=== PATIENT | female | born 1945 ===

== ENCOUNTER 2017-09-25 19:58 | Inpatient (IN) | payer MEDICARE, MEDICAID ==
--- NOTE | 2017-09-25 20:49 | ED PDOC ---
Arrival/HPI - General Chief Complaint: Chest Pain Time Seen by Provider: 09/25/17 20:06 Historian: Patient, Family - Critical Care Narrative Critical Care (Text): you were treated in the ED today for history of heart disease with stent and you take aspirin but haven't taken recently, with chest pain generalized without otherwise without any nausea/vomiting/headache/dizziness/difficulty breathing/abdomen pain/numbness/tingling/loss of limb function/pain with urination/recent travel/prior blood clots/prior cancer/prior hormonal treatments. 09/25/17 20:54 - History of Present Illness Narrative History of Present Illness (Text): you were treated in the ED today for history of heart disease with stent and you take aspirin but haven't taken recently, with chest pain generalized without otherwise without any nausea/vomiting/headache/dizziness/difficulty breathing/abdomen pain/numbness/tingling/loss of limb function/pain with urination/recent travel/prior blood clots/prior cancer/prior hormonal treatments. 09/25/17 20:45 Time/Duration: Other (3 days) Quality: Aching Severity Level: 2 Past Medical History - Provider Review Nursing Documentation Reviewed: Yes - Travel History Have you recently traveled outside [place] w/in the past 3 mons?: No - Cardiac Hx Cardiac Disorders: Yes Hx Hypertension: Yes - Pulmonary Hx Respiratory Disorders: No - Neurological Hx Neurological Disorder: Yes Other/Comment: Insomnia - HEENT Hx HEENT Disorder: No - Renal Hx Renal Disorder: No - Endocrine/Metabolic Hx Endocrine Disorders: Yes Hx Hypothyroidism: Yes - Hematological/Oncological Hx Blood Disorders: No - Integumentary Hx Dermatological Disorder: No - Musculoskeletal/Rheumatological Hx Musculoskeletal Disorders: Yes Hx Arthritis: Yes Hx Osteoporosis: Yes - Gastrointestinal Hx Gastrointestinal Disorders: No - Genitourinary/Gynecological Hx Genitourinary Disorders: No - Psychiatric Hx Psychophysiologic Disorder: Yes Hx Substance Use: No Other/Comment: "mood swings" - Surgical History Hx Coronary Stent: Yes Family/Social History - Physician Review Nursing Documentation Reviewed: Yes Family/Social History: No Known Family HX Smoking Status: Never Smoked Hx Alcohol Use: No Hx Substance Use: No Allergies/Home Meds Allergies/Adverse Reactions: Allergies No Known Allergies Allergy (Verified 09/25/17 20:07) Home Medications: Home Meds Medication Instructions Recorded Confirmed Unobtainable 09/25/17 09/25/17 Review of Systems - Review of Systems Constitutional: Normal Eyes: Normal ENT: Normal Respiratory: Normal Cardiovascular: Chest Pain Gastrointestinal: Normal Genitourinary Female: Normal Musculoskeletal: Normal Skin: Normal Neurological: Normal Endocrine: Normal Hemo/Lymphatic: Normal Psychiatric: Normal Physical Exam Vital Signs Reviewed: Yes Vital Signs Temp Pulse Resp BP Pulse Ox 09/25/17 19:58 98.1 F 62 18 133/63 100 Temperature: Afebrile Blood Pressure: Hypertensive Pulse: Regular Respiratory Rate: Normal Appearance: Positive for: Well-Appearing, Non-Toxic, Comfortable Pain Distress: None Mental Status: Positive for: Alert and Oriented X 3 - Systems Exam Head: Present: Atraumatic, Normocephalic Pupils: Present: PERRL Extroacular Muscles: Present: EOMI Conjunctiva: Present: Normal Ears: Present: Normal Pharnyx: Present: Normal Nose (External): Present: Atraumatic Nose (Internal): Present: Normal Inspection Neck: Present: Normal Range of Motion Respiratory/Chest: Present: Clear to Auscultation, Good Air Exchange Cardiovascular: Present: Regular Rate and Rhythm Abdomen: No: Tenderness, Distention, Normal Bowel Sounds, Peritoneal Signs, Rebound, Guarding, McBurney's Point Tender, Rovsing's Sign Present, Hernias, Feeding Tubes, Ostomy Tubes, Mass/Organomegaly, Scars, Other Medical Decision Making ED Course and Treatment: you were treated in the ED today for history of heart disease with stent and you take aspirin but haven't taken recently, with chest pain generalized without otherwise without any nausea/vomiting/headache/dizziness/difficulty breathing/abdomen pain/numbness/tingling/loss of limb function/pain with urination/recent travel/prior blood clots/prior cancer/prior hormonal treatments. You were otherwise breathing easily, smiling with your daughter, good strength/sensation, alert/oriented, walking easily, clear lungs, no abdomen tenderness, no fever temp 98.1, stable heart rate 62, stable breathing rate _18, excellent oxygen level 100% room air, elevated blood pressure 133/63 which we recommend repeat in 2-3 days primary care office to determine further treatment. neg wbc/trop/bnp. CXR no acute. 09/25/17 20:49 09/25/17 22:01 d/w Dr. Garcia who agreed aspirin, and can admit obs for remote telemetry. - Lab Interpretations Lab Results: 09/25/17 20:11 09/25/17 20:11 Lab Results 09/25/17 20:11: PT 11.3, INR 0.99, APTT 32.5 09/25/17 20:11: Sodium 136, Potassium 4.1, Chloride 99, Carbon Dioxide 30, Anion Gap 11, BUN 18, Creatinine 0.9, Est GFR ( Amer) > 60, Est GFR (Non- Af Amer) > 60, Random Glucose 86, Calcium 10.1, Magnesium 1.9, Total Bilirubin 0.3, AST 32, ALT 27, Alkaline Phosphatase 88, Lactate Dehydrogenase 476, Total Creatine Kinase 62, Troponin I < 0.01, NT-Pro-B Natriuret Pep 114, Total Protein 7.9, Albumin 4.3, Globulin 3.6, Albumin/Globulin Ratio 1.2 09/25/17 20:11: WBC 5.2, RBC 3.91, Hgb 11.6 L, Hct 35.2 L, MCV 90.0, MCH 29.7, MCHC 33.0, RDW 13.8, Plt Count 253, MPV 9.7, Gran % 32.5 L, Lymph % (Auto) 60.3 H, Gilmer % (Auto) 5.9, Eos % (Auto) 1.1 L, Baso % (Auto) 0.2, Gran # 1.69, Lymph # 3.2, Gilmer # 0.3, Eos # 0.1, Baso # 0.01 - RAD Interpretation Radiology Orders: 09/25/17 20:27 CHEST TWO VIEWS (PA/LAT) [RAD] Stat - EKG Interpretation Interpreted by ED Physician: Yes (NSR, flipped t waves avr, avf, v1, iii, flattened ii, ) Type: 12 lead EKG - Medication Orders Current Medication Orders: Acetaminophen (Tylenol 325mg Tab) 650 mg PO Q6H PRN PRN Reason: Fever >100.4 F Nitroglycerin (Nitro-Bid 2% Oint) 1 ea TOP Q4H KOBE Discontinued Medications Aspirin (Aspirin Chewable) 324 mg PO STAT STA Stop: 09/25/17 20:31 Last Admin: 09/25/17 20:38 Dose: 324 mg Disposition/Present on Arrival - Present on Arrival Any Indicators Present on Arrival: No History of DVT/PE: No History of Uncontrolled Diabetes: No Urinary Catheter: No History of Decub. Ulcer: No History Surgical Site Infection Following: None - Disposition Have Diagnosis and Disposition been Completed?: Yes Diagnosis: Chest pain Disposition: HOSPITALIZED Disposition Time: 22:03 Patient Plan: Admission, Telemetry Condition: STABLE Discharge Instructions (ExitCare): Chest Pain (ED) Referrals: PCP,NO [Primary Care Provider] - Follow up with primary Forms: [employer] (Mongolian)
[2017-09-25 20:56] LABS: BASO # 0.01 [, K/mm3] (0.0-2.0); BASO % 0.2 % (0.0-3.0); EOS # 0.1 (0.0-0.7); EOS % 1.1 % (1.5-5.0); GRAN # 1.69 (1.4-6.5); GRAN % 32.5 % (50.0-68.0); HEMOGLOBIN 11.6 g/dL (12.0-16.0); LYMPH # 3.2 (1.2-3.4); LYMPH % 60.3 % (22.0-35.0); MEAN CORPUSCULAR HEMOGLOBIN 29.7 pg (25.0-35.0); MEAN PLATELET VOLUME 9.7 fl (7.0-11.0); MONO # 0.3 (0.1-0.6); MONO % 5.9 % (1.0-6.0); RBC 3.91 [, 10^6/uL] (3.5-6.1); RED CELL DISTRIBUTION WIDTH 13.8 % (11.5-14.5); WHITE BLOOD COUNT 5.2 [, 10^3/ul] (4.5-11.0)
[2017-09-25 21:03] LABS: INR 0.99 (0.93-1.08); PROTHROMBIN TIME 11.3 SECONDS (9.4-12.5)
[2017-09-25 21:04] LABS: ALB/GLOB RATIO 1.2 (1.1-1.8); ALBUMIN 4.3 g/dL (3.0-4.8); ALT/SGPT 27 U/L (7-56); AST/SGOT 32 U/L (14-36); BLOOD UREA NITROGEN 18 mg/dL (7-21); CALCIUM 10.1 mg/dL (8.4-10.5); GFR AFRICAN-AMERICAN > 60; GFR NON-AFRICAN AMERICAN > 60; MAGNESIUM 1.9 mg/dL (1.7-2.2); PARTIAL THROMBOPLASTIN TIME 32.5 Seconds (25.1-36.5)
[2017-09-25 21:16] LABS: B-TYPE NATRIURETIC PEPTIDE 114 pg/mL (0-450); TROPONIN I < 0.01 ng/mL
[2017-09-25] MEDS: Nitroglycerin 2% Ointment Foilpak UD TOP SCH (22:18)
[2017-09-26] MEDS: Nitroglycerin 2% Ointment Foilpak UD TOP SCH ×6 (02:45→21:46)
[2017-09-26 07:25] LABS: TROPONIN I < 0.01 ng/mL
[2017-09-26 07:27] LABS: HDL CHOLESTEROL 57 mg/dL (29-60)
[2017-09-26 07:38] LABS: LDL CHOLESTEROL 95 mg/dL (0-129)
--- NOTE | 2017-09-26 08:51 | RAD ---
HISTORY: 72yoF, chest pain COMPARISON: No prior. TECHNIQUE: Chest PA and lateral FINDINGS: LUNGS: Minor crowding is seen at the lung bases. No focal alveolar infiltrate is seen. PLEURA: No significant pleural effusion identified. No pneumothorax apparent. CARDIOVASCULAR: Normal. OSSEOUS STRUCTURES: Degenerative changes are seen in the spine. No rib fracture is seen. VISUALIZED UPPER ABDOMEN: Normal. OTHER FINDINGS: None. IMPRESSION: No focal infiltrate or CHF.
--- NOTE | 2017-09-26 11:03 | CARD ---
APPROVED REPORT EKG Measurement Heart [id number] PA 160P4 [id number] <Conclusion> Normal sinus rhythm Moderate voltage criteria for LVH, may be normal variant LAD PRWP NSSTW changes V4 obscured by artifact
[2017-09-26 11:05] LABS: IRON 59 ug/dL (45-180)
[2017-09-26 11:14] LABS: % IRON SATURATION 23 % (20-55); TOTAL IRON BINDING CAPACITY 263 ug/dL (265-497)
[2017-09-26 12:52] LABS: TROPONIN I < 0.01 ng/mL
[2017-09-26 17:04] LABS: FERRITIN 26.1 ng/mL
[2017-09-26 17:34] LABS: FOLATE > 20.0 ng/mL
[2017-09-27] MEDS: Nitroglycerin 2% Ointment Foilpak UD TOP SCH ×6 (02:44→21:12)
[2017-09-27 03:06] LABS: URINE BILIRUBIN NEGATIVE (NEGATIVE); URINE BLOOD NEGATIVE (NEGATIVE); URINE GLUCOSE (UA) NEGATIVE (NEGATIVE); URINE LEUKOCYTE ESTERASE NEGATIVE Leu/uL (NEGATIVE); URINE NITRATE NEGATIVE (NEGATIVE); URINE PROTEIN NEGATIVE mg/dL (<30 mg/dL); URINE UROBILINOGEN 0.2 E.U./dL (<1 E.U./dL)
[2017-09-27 03:20] LABS: URINE APPEARANCE CLEAR (CLEAR); URINE COLOR YELLOW (YELLOW)
--- NOTE | 2017-09-27 06:22 | HP ---
HISTORY OF PRESENT ILLNESS: This 72-year-old female was examined at her bedside in the presence of her nurse Humaira Brumfield, Registered Nurse and this case was reviewed in detail with the patient's daughter Leyda Sanford with whom the patient lives. The patient presented to the [facility] ER last evening. She complained of substernal chest pain with difficulty breathing for the past 2 days prior to admission. Her past medical history is significant for atherosclerotic heart disease and coronary artery stent placed in the year 2003. The patient was previously living in [place] and has recently relocated to live with her daughter, Leyda in [place], [place]. PAST MEDICAL HISTORY: According to the patient, she has a past medical history of chronic hypertension, hyperlipidemia, and atherosclerotic heart disease. She has not had any recent blood work, Cardiology followup or a lab testings and has not been on any medication in the recent past. SOCIAL HISTORY: At present, the patient is a nondrinker, nonsmoker, and non-IV drug misuser. FAMILY HISTORY: Noncontributory. On the satellite project site monitor, she was in a normal sinus rhythm, and at present was not complaining of chest pain and is wearing nitroglycerin ointment to her chest wall at present. REVIEW OF SYSTEMS: CONSTITUTIONAL: There are no fever or chills. HEAD: No headache or seizure. EYES: No change in visual acuity. EARS: No hearing loss. THROAT: No swallowing difficulty. NECK: No stiffness. CARDIAC: As per HPI. PULMONARY: No hemoptysis. GASTROINTESTINAL: No hematemesis. No melena. GENITOURINARY: No dysuria. SKIN: Without rash. NEUROLOGICAL: No recent stroke. VASCULAR: No claudication. PSYCHOLOGICAL: Chronic anxiety. ENDOCRINOLOGICAL: No knowledge of diabetes or chronic hyperlipidemia. OUTPATIENT MEDICATIONS: None. PHYSICAL EXAMINATION: VITAL SIGNS: satellite project site monitor showed a normal sinus rhythm. Temperature 98, respirations 20, pulse 60, blood pressure 137/59, and pulse ox 95% on room air. HEENT: Head; normocephalic and atraumatic. Eyes; no icterus. Ears clear. Throat; noninjected. NECK: Supple. HEART: Regular, S1 and S2. No pathological rubs, murmurs, gallops. LUNGS: Clear. ABDOMEN: Soft. EXTREMITIES: No edema. SKIN: Without rash. NEUROLOGICAL: Intact. PSYCHOLOGICAL: Alert. VASCULAR: Legs warm to touch. LABORATORY DATA: White count 5,200, hemoglobin 11.6, hematocrit 35.2, platelets 253,000. PT/INR is 0.99, PTT 32.5. Sodium 136, potassium 4.1, chloride 99, bicarb 30, BUN 18, creatinine 0.9. Random blood sugar 86. Magnesium normal 1.9. Iron 59, TIBC 263, percent saturation 23, ferritin normal 26. Liver function testing normal including bilirubin 0.3, AST 32, ALT 27, and alkaline phosphatase 88. CPK #1 62, CPK #2 56, CPK #3 52. Troponin less than 0.01 x3. Cholesterol 216, triglyceride 215, LDL 95, and HDL 57. Vitamin B12 of 373 and folic acid 20. Chest x-ray was reviewed, it showed no active infiltrate, no pleural effusion, no pneumothorax. EKG showed normal sinus rhythm with nonspecific ST-T wave changes and a left axis deviation and poor R wave progression. IMPRESSION: A 72-year-old female with history of atherosclerotic heart disease, hypertension, hyperlipidemia, and history of coronary stenting in her past, now with probable unstable angina, rule out atypical chest pain secondary to peptic ulcer disease with anemia of chronic disease, and hyperlipidemia. PLAN: As discussed with the patient, nursing, and daughter will be to maintain the patient on the cardiac pablo and she has been scheduled for 2D echocardiogram and a thallium stress test for completeness sake. She was ordered to have a venous Doppler of both lower extremities and will be continued on Ecotrin 81 mg p.o. daily, Lipitor 20 mg p.o. at bedtime, nitroglycerin 1 inch to chest wall q. 4 hours and Tylenol 650 mg p.o. q. 6 hours p.r.n. pain, headache, or temperature greater than 101. She will remain on the satellite project site monitor. She continues to have heart-healthy, bland diet and will be monitored for any change in her cardiovascular status. All of the above was discussed in the detail with the patient, nursing, and her daughter. Greater than 75 minutes was spent in the care. Review of x-rays, labs,medications, and discussion of the patient with family at bedside, all questions were answered. Kathia Garcia MD [facility] # [id number] MTDD
--- NOTE | 2017-09-27 08:51 | CARD ---
APPROVED REPORT EXAM: Two-dimensional and M-mode echocardiogram with Doppler and color Doppler. Other Information Quality : PoorRhythm : INDICATION Chest pressure 2D DIMENSIONS IVSd1.3 (0.7-1.1cm)LVDd4.4 (3.9-5.9cm) PWd1.0 (0.7-1.1cm)LVDs2.8 (2.5-4.0cm) FS (%) 35.6 %LVEF (%)65.0 (>50%) M-Mode DIMENSIONS Left Atrium (MM)4.00 (2.5-4.0cm)Aortic Root2.90 (2.2-3.7cm) Aortic Cusp Exc.2.00 (1.5-2.0cm) Aortic Valve AoV Peak Uqpnyegm646.0cm/s Mitral Valve MV E Wnsgwshg98.6cm/sMV A Hhzauvay50.9cm/sE/A ratio0.8 TDI Lateral E' Peak V6.24cm/sMedial E' Peak V4.68cm/sE/Lateral E'11.0 E/Medial E'14.7 Tricuspid Valve TR Peak Xpsfaouo022pj/sRAP [id number] Peak Gr.15mmHg [id number] LEFT VENTRICLE The left ventricle is normal size. There is normal left ventricular wall thickness. The left ventricular function is normal. The left ventricular ejection fraction is within the normal range. There is normal LV segmental wall motion. RIGHT VENTRICLE The right ventricle is not well visualized. ATRIA The left atrium size is normal. The right atrium is not well visualized. AORTIC VALVE The aortic valve is mildly sclerotic. MITRAL VALVE The mitral valve is normal in structure. TRICUSPID VALVE The tricuspid valve is normal in structure. There is trace tricuspid regurgitation. PULMONIC VALVE The pulmonary valve is normal in structure. GREAT VESSELS The aortic root is normal in size. PERICARDIAL EFFUSION There is no pericardial effusion. <Conclusion> The left ventricle is normal size. There is normal left ventricular wall thickness. The left ventricular function is normal.
[2017-09-28] MEDS: Nitroglycerin 2% Ointment Foilpak UD TOP SCH ×5 (02:06→16:56)
[2017-09-28 05:56] VITALS: O2SAT 96
--- NOTE | 2017-09-28 08:08 | PN ---
DATE: 09/27/2017 SUBJECTIVE: This 72-year-old female was examined in the cardiac unit. She is in a normal sinus rhythm at present. She denies any active chest pain. There have been no reports of fever or chills. She is cooperating with the nursing staff. This case was reviewed in detail with her nurse, Angela Salazar, Registered Nurse. PHYSICAL EXAMINATION: VITAL SIGNS: She is in a normal sinus rhythm on the manager cardiac cath with temperature 98.4, respirations 20, pulse 56 and blood pressure 131/69 and pulse ox 97%. HEENT: Head is normocephalic, atraumatic. Eyes: No icterus. Ears: Clear. Throat: Noninjected. NECK: Supple. HEART: Regular, S1, S2. LUNGS: Clear. ABDOMEN: Soft. EXTREMITIES: No edema. SKIN: Without rash. NEUROLOGICAL: Intact. PSYCHOLOGICAL: Alert. VASCULAR: Legs warm to touch. LABORATORY DATA: White count 5200, hemoglobin 11.6, hematocrit 35.2, platelets 253,000. PT/INR 0.99, PTT 32.5. Sodium 136, K 4.1, chloride 99, bicarb 30, BUN 18, creatinine 0.9, random blood sugar 86. Magnesium level normal 1.9. Iron 59, TIBC 263, percent saturation 23%, ferritin 26.1. All liver function testing was normal including bilirubin 0.3, AST 32, ALT 27, alk phos 88. CPK #1 62, #2 56, #3 52, cholesterol 216, LDL 95, HDL 57, triglycerides 215, B12 373. Folic acid 20. Urinalysis unremarkable. Chest x-ray; no active infiltrate. EKG normal sinus rhythm with nonspecific ST-T wave changes. Echocardiography was completed and reviewed. It showed normal left ventricular size, wall motion and thickness. Left ventricular ejection fraction is normal. No valvular pathology was noted. IMPRESSION: This is a 72-year-old female with history of atherosclerotic heart disease and coronary artery stenting in the past with comorbidities of hypertension, hyperlipidemia and noncompliance with diet, medication and medical followup in her past. PLAN: The plan as discussed with the patient, nursing and her daughter, Leyda Sanford, will be to maintain the patient on the cardiac pablo. She is being readied for a Lexiscan stress thallium test in the a.m. She will be n.p.o. after midnight. I am awaiting the official results of her bilateral lower extremity venous Dopplers, reportedly negative. She continues on Ecotrin 81 mg p.o. daily, Lipitor 20 mg p.o. daily, nitroglycerin 1 inch to chest wall q. 4 hours and a heart-healthy diet. Pending results of venous Doppler studies and thallium stress test. The patient will be readied for discharge for medical management as an outpatient. The patient has an anemia of chronic disease and as discussed with her daughter, if she has not had a colonoscopy and endoscopy in her recent past, it is advised that she do so. Greater than 35 minutes was spent in the care, management, ordering of labs, x-rays, medication and orders for this patient today. All questions were answered. Kathia Garcia MD MTDD
--- NOTE | 2017-09-28 17:16 | US ---
HISTORY: Leg pain and swelling. Evaluate for DVT PHYSICIAN(S): Waylon Huddleston MD. TECHNIQUE: Duplex sonography and color-flow Doppler with graded compression were used to evaluate the deep venous systems of both lower extremities. FINDINGS: The visualized deep venous systems of both lower extremities are sonographically normal and compressible. Normal wave forms and augmentation are seen. There is no sonographic evidence for deep venous thrombosis in the visualized segments of both lower extremities. IMPRESSION: No sonographic evidence for deep venous thrombosis in the visualized segments of both lower extremities.
[2017-09-28 17:47] VITALS: BP 179/76; PULSE 55; RESP 21; TEMP 98
--- NOTE | 2017-09-29 02:14 | CON ---
DATE: IDENTIFICATION INFORMATION: The patient is a 72-year-old (looks significantly older) Marcel female who came to the emergency room complaining of substernal chest pain with difficulty in breathing of 2 days' duration. HISTORY OF PRESENT ILLNESS: The patient has a medical history that is positive for ACHD, coronary artery stent in 2003. She had previously been residing in [place] and relocated to live with her daughter in [place]. She also has a past medical history of hypertension, hyperlipidemia. I have reviewed the patient's chart and discussed her situation with nursing and of her poor compliance and refusal to allow for necessary medical testing. The patient presents as a poor historian. She was interviewed with the assistance of a Belarusian-speaking nurse. The patient informs me that she is 82-year-old (her chart indicates 72) and she appears disoriented to year. She is aware she is in the hospital, could not specifically say why and could not identify the year. She gives a poor general history. She initially indicated she had one daughter from her (first and perhaps only marriage), but has what appeared to be 10 children from 3 different mates. She denies a psychiatric history. Other than her disorientation, and poor room conveyance of history, the patient does not show any overt signs of psychosis, depression, anxiety, suicidality, or homicidality. A chest x-ray showed degenerative changes in the spine with no focal infiltrate or congestive heart failure. An EKG performed on 09/25/2017 showed a normal sinus rhythm with moderate voltage criteria for LVH which may be a normal variant, LAD, PRWP, and SSTW changes. An echocardiogram showed normal left ventricular size, thickness and function. An extremity ultrasound shows no sonographic evidence of DVT of both lower extremities. The patient is presently being maintained on Ecotrin 81, Lipitor 20 mg. CBC and differential showed low hemoglobin of 11.6, hematocrit 35.2. A biochemical profile showed lowered TIBC of 263 with elevated triglycerides of 215 and cholesterol 216 with other indices being within normal limits. Urinalysis has been clear. PT 11.3, INR is 0.99. I have prevailed upon the patient to try to be cooperative. She appears to have a limited insight and poor judgment that she would cooperate with necessary medical testing. As I look at progress notes through the course of the day after having reached an agreement with the patient that she would be calm, cooperative with testing. I observed that the patient has prevailed upon her daughter to take her home against medical advice. This is unfortunate but unavoidable at this juncture. DIAGNOSES: 1. Rule out cognitive disorder, not otherwise specified. 2. Rule out adjustment disorder with disturbance in conduct. Jourdan Cristina MD/ PhD
--- NOTE | 2017-09-29 19:16 | DS ---
FINAL DIAGNOSES: Chest pain, etiology unclear; history of noncompliance with diet, medication, and medical followup in her past; anemia of chronic disease; hypertension; hyperlipidemia; anxiety neurosis. The patient with her daughter left against medical advice, 09/28/2017. SUMMARY: This 72-year-old female was admitted through the [facility] Emergency Room with a chief complaint of chest discomfort and a past medical history of atherosclerotic heart disease, coronary artery stenting, hypertension and hyperlipidemia for which she has been under no medical followup or medication in the recent past. The patient was admitted, underwent chest x-ray that was unremarkable. Her EKG showed a sinus rhythm with nonspecific ST-T wave changes and her echocardiogram showed normal left ventricular wall motion, function, and thickness. Because of her history of atherosclerotic heart disease, stenting, presentation to the emergency room and comorbidities, she was scheduled for a thallium stress test on the morning of 09/28/2017. The patient was brought down to testing where she became upset and refused to undergo stress test stating she wanted to go home. Her daughter was informed. Given the patient's clinical presentation and comorbidities, a psychiatric evaluation was requested with Dr. Cristina to ensure that the patient was competent in her decision for refusal. This was accomplished and the patient was evaluated by Dr. Cristina from Psychiatry who reportedly stated the patient was able to make independent decisions. After his evaluation the patient initially agreed to cooperate with necessary testing, then stated she would not. Nursing staff called her daughter. The patient's daughter stated to her nurse that she would be in later in the evening to take her mother home against medical advice. When the daughter arrived I spoke with her again. They are aware of my concerns regarding her presentation, past medical history, and current status, and still desired to leave against medical advice. The daughter was informed that the patient should seek follow up with her PMD within the next 24 to 48 hours, and for any further chest pain, present directly to the closest emergency room. Kathia Garcia MD [facility]
== END 2017-09-28 18:44 | disposition left against medical advice (07) | DRG 303 ==
LOC: ED 19:58 → ERH 22:03 → 2RSO 09-26 00:51 → OBSVTOIN 09-26 10:42
PROVIDERS: ADMIT Internal Medicine; ATTEND Internal Medicine
DX: I25.110 Atherosclerotic heart disease of native coronary artery with unstable angina pectoris (principal); I10 Essential (primary) hypertension; D63.8 Anemia in other chronic diseases classified elsewhere; E78.5 Hyperlipidemia, unspecified; K27.9 Peptic ulcer, site unspecified, unspecified as acute or chronic, without hemorrhage or perforation; Z95.5 Presence of coronary angioplasty implant and graft; Z91.14 Patient's other noncompliance with medication regimen; Z91.11 Patient's noncompliance with dietary regimen

== ENCOUNTER 2018-04-01 20:47 | Observation (INO) | payer MEDICARE, MEDICAID ==
[2018-04-01 20:55] VITALS: BMI 27.4
[2018-04-01 21:11] LABS: BASO # 0.01 K/mm3 (0.0-2.0); BASO % 0.2 % (0.0-3.0); EOS % 0.5 % (1.5-5.0); GRAN # 2.31 (1.4-6.5); HEMOGLOBIN 11.3 g/dL (12.0-16.0); LYMPH # 3.3 (1.2-3.4); LYMPH % 55.6 % (22.0-35.0); MEAN CORPUSCULAR HEMOGLOBIN 29.3 pg (25.0-35.0); MEAN PLATELET VOLUME 9.2 fl (7.0-11.0); MONO # 0.3 (0.1-0.6); MONO % 4.7 % (1.0-6.0); RBC 3.86 10^6/uL (3.5-6.1); RED CELL DISTRIBUTION WIDTH 14.1 % (11.5-14.5); WHITE BLOOD COUNT 5.9 10^3/ul (4.5-11.0)
[2018-04-01 21:20] LABS: ALB/GLOB RATIO 1.2 (1.1-1.8); ALBUMIN 4.2 g/dL (3.0-4.8); ALT/SGPT 24 U/L (7-56); AST/SGOT 27 U/L (14-36); BLOOD UREA NITROGEN 11 mg/dL (7-21); CALCIUM 9.9 mg/dL (8.4-10.5); GFR AFRICAN-AMERICAN > 60; GFR NON-AFRICAN AMERICAN > 60
--- NOTE | 2018-04-01 21:25 | ED PDOC ---
Arrival/HPI - General Chief Complaint: Chest Pain Time Seen by Provider: 04/01/18 20:49 Historian: Patient - History of Present Illness Narrative History of Present Illness (Text): 04/01/18 20:50 73 year old female, whose past medical history includes hypertension and cardiac stent placement 5 years ago presents to the emergency department complaining of left sided dull-like chest pain since mid-afternoon. Patient was given Aspirin by EMS. Patient has not had a recent cardiac workup. Patient does not take Aspirin or anticoagulants as per family. Patient denies any fever, chills, shortness of breath, nausea, vomiting, diarrhea, urinary symptoms, back pain, neck pain, headache, dizziness, or any other complaints. Symptom Onset: Gradual Symptom Course: Unchanged Activities at Onset: Light Context: Home Past Medical History - Provider Review Nursing Documentation Reviewed: Yes - Cardiac Hx Cardiac Disorders: Yes Hx Hypertension: Yes Hx Hypotension: Yes - Pulmonary Hx Respiratory Disorders: No Hx Pneumonia: No - Neurological Hx Neurological Disorder: Yes Other/Comment: Insomnia - HEENT Hx HEENT Disorder: Yes Other/Comment: wears glasses, Upper dentures - Renal Hx Renal Disorder: No - Endocrine/Metabolic Hx Endocrine Disorders: Yes Hx Hypothyroidism: Yes - Hematological/Oncological Hx Blood Disorders: No - Integumentary Hx Dermatological Disorder: No - Musculoskeletal/Rheumatological Hx Musculoskeletal Disorders: Yes Hx Arthritis: Yes Hx Falls: No Hx Osteoporosis: Yes - Gastrointestinal Hx Gastrointestinal Disorders: No - Genitourinary/Gynecological Hx Genitourinary Disorders: No - Psychiatric Hx Psychophysiologic Disorder: Yes Hx Depression: Yes Hx Substance Use: No Other/Comment: "mood swings" - Surgical History Hx Coronary Stent: Yes Family/Social History - Physician Review Nursing Documentation Reviewed: Yes Family/Social History: No Known Family HX Smoking Status: Never Smoked Hx Alcohol Use: No Hx Substance Use: No Allergies/Home Meds Allergies/Adverse Reactions: Allergies No Known Allergies Allergy (Verified 04/01/18 21:00) Home Medications: Home Meds Medication Instructions Recorded Confirmed Donepezil [Aricept] 10 mg PO DAILY 04/01/18 04/01/18 Lisinopril [Zestril] 10 mg PO DAILY 04/01/18 04/01/18 Temazepam [Restoril] 7.5 mg PO HS PRN 04/01/18 04/01/18 Review of Systems - Physician Review All systems were reviewed & negative as marked: Yes - Review of Systems Constitutional: absent: Fevers Respiratory: absent: SOB Cardiovascular: Chest Pain Gastrointestinal: absent: Diarrhea, Nausea, Vomiting Genitourinary Female: absent: Dysuria, Frequency, Hematuria Musculoskeletal: absent: Back Pain, Neck Pain Neurological: absent: Headache, Dizziness Physical Exam Vital Signs Reviewed: Yes Vital Signs Temp Pulse Pulse Resp BP Pulse Ox 04/01/18 23:04 98.3 F 63 60 20 145/70 04/01/18 21:00 98.4 F 63 18 151/78 H 100 Temperature: Afebrile Blood Pressure: Hypertensive Pulse: Regular Respiratory Rate: Normal Appearance: Positive for: Well-Appearing, Non-Toxic, Comfortable Pain Distress: None Mental Status: Positive for: Alert and Oriented X 3 - Systems Exam Head: Present: Atraumatic, Normocephalic Pupils: Present: PERRL Extroacular Muscles: Present: EOMI Conjunctiva: Present: Normal Mouth: Present: Moist Mucous Membranes Neck: Present: Normal Range of Motion Respiratory/Chest: Present: Clear to Auscultation, Good Air Exchange. No: Respiratory Distress, Accessory Muscle Use Cardiovascular: Present: Regular Rate and Rhythm, Normal S1, S2. No: Murmurs Abdomen: No: Tenderness, Distention, Peritoneal Signs Back: Present: Normal Inspection Upper Extremity: Present: Normal Inspection. No: Cyanosis, Edema Lower Extremity: Present: Normal Inspection. No: Edema Neurological: Present: GCS=15, CN II-XII Intact, Speech Normal Skin: Present: Warm, Dry, Normal Color. No: Rashes Psychiatric: Present: Alert, Oriented x 3, Normal Insight, Normal Concentration Medical Decision Making ED Course and Treatment: 04/01/18 21:23 Impression: 73 year old female presents complaining of left-sided dull-like chest pain. Plan: -- EKG -- Labs -- Chest X-ray -- Reassess and disposition Prior Visits: Notes and results from previous visits were reviewed. Patient was last seen in the emergency department on 09/25/17 presents complaining of chest pain. Patient was admitted. Progress Notes: EKG shows Sinus Rhythm at 71 BPM with Normal axis. Normal Intervals. Interpreted by me. 04/01/18 21:33 CXR Impression: As read by me, no acute disease. 04/01/18 21:55 Case discussed with medical massage therapist and Dr. Talbert who is aware and agrees with the plan. Accepts patient into hospitalist service. - Lab Interpretations Lab Results: 04/01/18 20:53 04/01/18 20:53 Lab Results 04/01/18 20:53: Sodium 141, Potassium 3.5 L, Chloride 106, Carbon Dioxide 23, Anion Gap 16, BUN 11, Creatinine 0.6 L, Est GFR ( Amer) > 60, Est GFR ( Non-Af Amer) > 60, Random Glucose 112 H, Calcium 9.9, Magnesium 1.9, Total Bilirubin 0.3, AST 27, ALT 24, Alkaline Phosphatase 87, Lactate Dehydrogenase 423, Total Creatine Kinase 82, Troponin I < 0.01, NT-Pro-B Natriuret Pep 199, Total Protein 7.8, Albumin 4.2, Globulin 3.6, Albumin/Globulin Ratio 1.2, Triglycerides 109, Cholesterol 206 H, LDL Cholesterol Direct 101, HDL Cholesterol 59 04/01/18 20:53: WBC 5.9, RBC 3.86, Hgb 11.3 L, Hct 33.2 L, MCV 86.0 D, MCH 29.3 , MCHC 34.0, RDW 14.1, Plt Count 279, MPV 9.2, Gran % 39.0 L, Lymph % (Auto) 55.6 H, [place] % (Auto) 4.7, Eos % (Auto) 0.5 L, Baso % (Auto) 0.2, Gran # 2.31, Lymph # (Auto) 3.3, [place] # (Auto) 0.3, Eos # (Auto) 0.0, Baso # (Auto) 0.01 I have reviewed the lab results: Yes - RAD Interpretation Radiology Orders: 04/01/18 20:56 CHEST PORTABLE [RAD] Stat - EKG Interpretation Interpreted by ED Physician: Yes Type: 12 lead EKG - Medication Orders Current Medication Orders: Donepezil HCl (Aricept) 10 mg PO DAILY [facility] Lisinopril (Zestril) 10 mg PO DAILY [facility] Metoprolol Succinate (Toprol Xl) 12.5 mg PO BRK [facility] Pantoprazole Sodium (Protonix Inj) 40 mg IVP DAILY [facility] Discontinued Medications Aspirin (Aspirin) 325 mg PO STAT STA Stop: 04/01/18 23:28 Last Admin: 04/02/18 00:16 Dose: 325 mg Atorvastatin Calcium (Lipitor) 40 mg PO STAT STA Stop: 04/01/18 23:28 Last Admin: 04/02/18 00:16 Dose: 40 mg Clopidogrel Bisulfate (Plavix) 75 mg PO STAT STA Stop: 04/01/18 23:28 Last Admin: 04/02/18 00:16 Dose: 75 mg Enoxaparin Sodium (Lovenox) 40 mg SC STAT STA PRN Reason: Protocol Stop: 04/01/18 23:28 Last Admin: 04/02/18 00:16 Dose: 40 mg Subcutaneous Administrations Document 04/02/18 00:16 GC (Rec: 04/02/18 00:16 GC [id number]) Injection Site MAR Injection Site Right Arm Charges for Administration # of Subcutaneous Administrations 1 - Scribe Statement The provider has reviewed the documentation as recorded by the Marioibe Victoria Pace Provider Scribe Attestation: All medical record entries made by the Marioibcate were at my direction and personally dictated by me. I have reviewed the chart and agree that the record accurately reflects my personal performance of the history, physical exam, medical decision making, and the department course for this patient. I have also personally directed, reviewed, and agree with the discharge instructions and disposition. Disposition/Present on Arrival - Present on Arrival Any Indicators Present on Arrival: No History of DVT/PE: No History of Uncontrolled Diabetes: No Urinary Catheter: No History of Decub. Ulcer: No History Surgical Site Infection Following: None - Disposition Have Diagnosis and Disposition been Completed?: Yes Diagnosis: Chest pain Disposition: HOSPITALIZED Disposition Time: 21:40 Condition: STABLE
[2018-04-01 21:31] LABS: B-TYPE NATRIURETIC PEPTIDE 199 pg/mL (0-450); TROPONIN I < 0.01 ng/mL
--- NOTE | 2018-04-01 23:03 | CP.PCM.HP ---
<Param Watkins - Last Filed: 04/02/18 01:22> History of Present Illness - History of Present Illness History of Present Illness: Param Watkins PGY-1, Internal Medicine Resident, History and Physical for Dr Talbert. HPI: Pt is a 73 yo female with a PMH of HTN and Dementia presents to the ED complaining of 10/10 substernal chest pain radiating to her shoulder. She states the pain comes in 10 min episodes. She is Korean speaking only with a history of dementia, her daughter helps relate her medical history and also act as res counselor. The pain has been relieved to 7/10 since she has gotten to the hospital. She states the pain began at about 7pm today while at rest. She denies headache, vomiting, or visual changes. She reports taking 4 baby ASA when the ambulance arrived. Pt reports feeling her heart beating fast. The pain is not made worse with breathing. She states that nothing makes the pain better or worse. She reports eating some spicy food for lunch, but does not normally experience heartburn. A 12 point ROS is obtained and added to the HPI where necessary. PMH: dementia, HTN PSH: , cardiac stent placesdfa 3 years ago FH: unable to obtain due to pt dementia SH: denies tobacco, alcohol, drugs, lives with daughter Home meds: donepizil, lisinopril, temazepam Allergies: NKDA Present on Admission - Present on Admission Any Indicators Present on Admission: No Review of Systems - Review of Systems Review of Systems: 12 point ROS obtained from pt and daughter with pertinent pos/neg added to HPI Past Patient History - Past Social History Smoking Status: Never Smoked - CARDIAC Hx Cardiac Disorders: Yes Hx Hypertension: Yes Hx Hypotension: Yes - PULMONARY Hx Respiratory Disorders: No Hx Pneumonia: No - NEUROLOGICAL Hx Neurological Disorder: Yes Other/Comment: Insomnia - HEENT Hx HEENT Problems: Yes Other/Comment: wears glasses, Upper dentures - RENAL Hx Chronic Kidney Disease: No - ENDOCRINE/METABOLIC Hx Endocrine Disorders: Yes Hx Hypothyroidism: Yes - HEMATOLOGICAL/ONCOLOGICAL Hx Blood Disorders: No - INTEGUMENTARY Hx Dermatological Problems: No - MUSCULOSKELETAL/RHEUMATOLOGICAL Hx Musculoskeletal Disorders: Yes Hx Arthritis: Yes Hx Falls: No Hx Osteoporosis: Yes - GASTROINTESTINAL Hx Gastrointestinal Disorders: No - GENITOURINARY/GYNECOLOGICAL Hx Genitourinary Disorders: No - PSYCHIATRIC Hx Psychophysiologic Disorder: Yes Hx Depression: Yes Hx Substance Use: No Other/Comment: "mood swings" - SURGICAL HISTORY Hx Coronary Stent: Yes Meds Allergies/Adverse Reactions: Allergies Allergy/AdvReac Type Severity Reaction Status Date / Time No Known Allergies Allergy Verified 04/01/18 21:00 Physical Exam - Constitutional Appears: No Acute Distress - Head Exam Head Exam: ATRAUMATIC, NORMAL INSPECTION, NORMOCEPHALIC - Eye Exam Eye Exam: EOMI, Normal appearance - ENT Exam ENT Exam: Mucous Membranes Moist - Neck Exam Neck exam: Positive for: Normal Inspection - Respiratory Exam Respiratory Exam: Clear to Auscultation Bilateral, NORMAL BREATHING PATTERN. absent: Rhonchi, Wheezes, Respiratory Distress, Stridor - Cardiovascular Exam Cardiovascular Exam: REGULAR RHYTHM, RRR, +S1, +S2. absent: Diastolic murmur, JVD, +S4, Systolic Murmur - GI/Abdominal Exam GI & Abdominal Exam: Normal Bowel Sounds, Soft - Extremities Exam Extremities exam: Positive for: full ROM, normal inspection. Negative for: calf tenderness, joint swelling, pedal edema - Neurological Exam Neurological exam: CN II-XII Intact Additional comments: pt underlying dementia makes hx difficult to obtain - Psychiatric Exam Psychiatric exam: Normal Mood - Skin Skin Exam: Dry, Intact, Warm Results - Vital Signs Recent Vital Signs: Last Vital Signs Temp 98.4 F 04/01/18 21:00 Pulse 63 04/01/18 21:00 Resp 18 04/01/18 21:00 BP 151/78 H 04/01/18 21:00 Pulse Ox 100 04/01/18 21:00 - Labs Result Diagrams: 04/01/18 20:53 04/01/18 20:53 Assessment & Plan - Assessment and Plan (Free Text) Plan: Pt is a 73 yo female with a PMH of HTN and Dementia presents to the ED complaining of 10/10 substernal chest pain radiating to her shoulder. Plan: Chest Pain -ordered Lipid panel, HA1C, Mg, Phos, TSH -Troponin NEGATIVE x1, continue to trend q6h -EKG: RRR, no ST or T wave abnormalities, no signs of ischemia, repeat EKG q6h -Cardio consult, Dr Ingram, appreciate recommendations -started ASA 325mg, Lipitor 40mg, Plavix 75mg, Metoprolol 12.5mg -ordered ECHO -pt started on heart healthy diet HTN -continue home Lisinopril 10mg Dementia -Continue home Donepezil 10mg PO Daily DVT ppx -start lovenox -start SCDs GI ppx -start Pantoprazole 40mg IVP Pt seen, examined, and assessment/plan extenisively discussed with Dr Talbert. Param Watkins PGY-1 <Yayo Talbert - Last Filed: 04/02/18 06:58> Results - Vital Signs Recent Vital Signs: Last Vital Signs Temp 98.0 F 04/02/18 06:00 Pulse 57 L 04/02/18 06:00 Resp 20 04/02/18 06:00 BP 139/57 L 04/02/18 06:00 Pulse Ox 98 04/02/18 06:00 - Labs Result Diagrams: 04/01/18 20:53 04/01/18 20:53 Attending/Attestation - Attestation I have personally seen and examined this patient.: Yes I have fully participated in the care of the patient.: Yes I have reviewed all pertinent clinical information: Yes Notes (Text): 04/02/18 06:56 Pt seen and examined. Chest pain in setting of CARD with stents , HTN. R/o ACS with Cardiac enzymes Cardiology consult Plan of care discussed with resident.
[2018-04-01] MEDS ORDERED: Enoxaparin 40 mg Syringe SC STA (23:27)
[2018-04-02 00:17] LABS: HDL CHOLESTEROL 59 mg/dL (29-60)
[2018-04-02 00:27] LABS: LDL CHOLESTEROL 101 mg/dL (0-129)
[2018-04-02] MEDS ORDERED: Potassium Chloride 40 mEq/30 ml LIQ UD PO ONE (06:54)
[2018-04-02 06:58] LABS: BASO # 0.01 K/mm3 (0.0-2.0); BASO % 0.2 % (0.0-3.0); EOS % 0.9 % (1.5-5.0); GRAN # 1.81 (1.4-6.5); GRAN % 39.6 % (50.0-68.0); HEMOGLOBIN 10.9 g/dL (12.0-16.0); LYMPH # 2.4 (1.2-3.4); LYMPH % 53.2 % (22.0-35.0); MEAN CELL VOLUME 87.4 fl (80.0-105.0); MEAN CORPUSCULAR HEMOGLOBIN 28.7 pg (25.0-35.0); MEAN CORPUSCULAR HGB CONC 32.8 g/dl (31.0-37.0); MEAN PLATELET VOLUME 9.3 fl (7.0-11.0); MONO # 0.3 (0.1-0.6); MONO % 6.1 % (1.0-6.0); RBC 3.8 10^6/uL (3.5-6.1); RED CELL DISTRIBUTION WIDTH 14.2 % (11.5-14.5); WHITE BLOOD COUNT 4.6 10^3/ul (4.5-11.0)
[2018-04-02 07:10] LABS: ALB/GLOB RATIO 1.1 (1.1-1.8); ALBUMIN 3.8 g/dL (3.0-4.8); ALT/SGPT 25 U/L (7-56); AST/SGOT 30 U/L (14-36); BLOOD UREA NITROGEN 10 mg/dL (7-21); CALCIUM 9.3 mg/dL (8.4-10.5); GFR AFRICAN-AMERICAN > 60; GFR NON-AFRICAN AMERICAN > 60
[2018-04-02 07:16] LABS: TROPONIN I 0.01 ng/mL
[2018-04-02] MEDS ORDERED: Metoprolol Succinate 25 mg XL Tab PO SCH (08:00)
--- NOTE | 2018-04-02 08:55 | RAD ---
Date of service: 04/01/2018 HISTORY: r/o infiltrate COMPARISON: 09/25/2017 FINDINGS: LUNGS: No active pulmonary disease. PLEURA: No significant pleural effusion identified, no pneumothorax apparent. CARDIOVASCULAR: Normal. OSSEOUS STRUCTURES: No significant abnormalities. VISUALIZED UPPER ABDOMEN: Normal. OTHER FINDINGS: None. IMPRESSION: No active disease.
--- NOTE | 2018-04-02 11:30 | CP.PCM.PCO ---
Addendum entered and electronically signed by Adolfo Browning DO 04/02/18 11: 41: Please disregard the original note. Original Note: Physician Communication Note - Physician Communication Note Physician Communication Note: Attempted to call next of kin at , but this an invalid phone#
[2018-04-02 12:04] VITALS: BP 132/70; RESP 18; TEMP 98
--- NOTE | 2018-04-02 12:51 | CON ---
DATE: 04/02/2018 CARDIOLOGY CONSULTATION REASON FOR CONSULTATION; Chest pain. HISTORY OF PRESENT ILLNESS: The patient is a 73-year-old female from [facility] who has a history of coronary stenting in the past according to the ER evaluation presumably because of chest pain. The patient description of the chest pain was dull like and this was obtained from the ER documentation. The patient denies any history of prior heart attack and she is currently chest pain free. SOCIAL HISTORY Nonsmoker, nondrinker. MEDICATIONS: Aricept 10 mg once a day, Protonix 40 mg intravenous once a day, Toprol-XL 12.5 mg once a day, Zestril 10 mg once a day. REVIEW OF SYSTEMS: No nausea or vomiting. No fever or chills. PHYSICAL EXAMINATION: GENERAL: The patient is an elderly female who does not appear to be in any distress. VITAL SIGNS: Blood pressure 152/68, heart rate 53, temperature 98, respirations 20. HEENT: Normocephalic. NECK: No JVD. CHEST: Clear. HEART: Sounds regular. EXTREMITIES: No edema. LABORATORY DATA: Hemoglobin and hematocrit 10.9 and 33.2. White count and platelet count are within normal limits. SMA-7 is within normal limits except for creatinine 0.6. Two sets of troponins are negative. Total cholesterol is 206. The rest of lipid profile is within normal limit. TSH level is within normal limit. EKG revealed normal sinus rhythm, [id number] voltage criteria for LVH. Echocardiogram study performed in 09/2017 revealed normal left ventricular size, wall thickness and ejection fraction. ASSESSMENT: 1. Chest pain, myocardial infarction is ruled out. 2. History of depression. 3. Questionable history of coronary stenting in the past. 4. Mild sinus bradycardia. RECOMMENDATIONS: Continue Aricept 10 mg once a day, Zestril 10 mg once a day. Start Lipitor at 40 mg orally once a day and aspirin 81 mg once a day. Obtain serum D-dimer and if within normal limits, the patient can be discharged on medical management, to be followed in the clinic for outpatient stress test. Waqas Linares MD
--- NOTE | 2018-04-02 14:11 | CP.PCM.PN ---
Subjective - Date & Time of Evaluation Date of Evaluation: 04/02/18 Time of Evaluation: 13:42 - Subjective Subjective: Adolfo Browning PGY1 - Card Player - Medicine Progress Note Patient was seen and evaluated at bedside this morning. Patient is without complaints today. Patient denies any chest pain and/or shortness of breath. Patient speaks Barbadian. Patient has underlying dementia, and is an unreliable historian. Spoke to the next of kin (daughter) over the phone who gave more info. The patient's daughter reports that the patient has had lower extremity edema ever since she was an infant because of some unknown illness. Patient's daughter says that this is not new. Patient's daughter reports that the patient has been complaining of chest pain since prior to September, when she was admitted for chest pain, per report, te patient has history of cardiac stent a few years prior. Per daughter, the patient has been living with her daughter for past month. Prior to this she lived in [place] for 3 months, and prior to this the patient was under the care of the patient's other children. Per daughter, the patient's primary care physician is currently Dr. Mor[facility] in [place]. Daughter says the patient's "labs" were recently normal. Patient does not have family history of heart disease. Patient never smoked. Daughter reports that the patient says she has an atrophied kidney. Prior to arriving in the ED the patient had a tooth extraction at 1:30PM under local anesthesia and was not given antibiotics, per daughter. Objective - Vital Signs/Intake and Output Vital Signs (last 24 hours): Temp Pulse Resp BP Pulse Ox 98 F 73 18 132/70 98 04/02/18 12:00 04/02/18 12:00 04/02/18 12:00 04/02/18 12:00 04/02/18 06:00 Intake and Output: 04/02/18 04/02/18 06:59 18:59 Intake Total 600 Output Total 1 Balance 599 - Medications Medications: Current Medications Aspirin (Aspirin Chewable) 81 mg PO DAILY [facility] Last Admin: 04/02/18 13:01 Dose: 81 mg Atorvastatin Calcium (Lipitor) 20 mg PO DIN [facility] Donepezil HCl (Aricept) 10 mg PO DAILY [facility] Last Admin: 04/02/18 09:51 Dose: 10 mg Lisinopril (Zestril) 10 mg PO DAILY [facility] Last Admin: 04/02/18 09:51 Dose: 10 mg Metoprolol Succinate (Toprol Xl) 12.5 mg PO BRK [facility] Last Admin: 04/02/18 09:50 Dose: Not Given Pantoprazole Sodium (Protonix Inj) 40 mg IVP DAILY [facility] Last Admin: 04/02/18 09:50 Dose: 40 mg - Labs Labs: 04/02/18 06:00 04/02/18 06:00 - Constitutional Appears: Non-toxic, No Acute Distress - Head Exam Head Exam: ATRAUMATIC, NORMAL INSPECTION, NORMOCEPHALIC - Eye Exam Eye Exam: EOMI, Normal appearance. absent: Nystagmus - ENT Exam ENT Exam: Mucous Membranes Moist - Neck Exam Neck Exam: absent: Lymphadenopathy, Tenderness - Respiratory Exam Respiratory Exam: Clear to Ausculation Bilateral, NORMAL BREATHING PATTERN. absent: Chest Wall Tenderness, Rales, Rhonchi - Cardiovascular Exam Cardiovascular Exam: Bradycardia, REGULAR RHYTHM, +S1, +S2. absent: Murmur - GI/Abdominal Exam GI & Abdominal Exam: Normal Bowel Sounds. absent: Tenderness - Extremities Exam Extremities Exam: Pedal Edema Additional comments: left non pitting edema Assessment and Plan - Assessment and Plan (Free Text) Assessment: Please refer to discharge summary
--- NOTE | 2018-04-02 15:27 | CP.PCM.DIS ---
<Adolfo Browning - Last Filed: 04/02/18 15:40> Provider - Provider Date of Admission: 04/01/18 22:06 Attending physician: Cele Falcon MD Primary care physician: Dr. Mora [address] [place] in [facility] Consults: Cardio: Dr. Ingram Time Spent in preparation of Discharge (in minutes): 45 Diagnosis - Discharge Diagnosis (1) Chest pain Status: Chronic Priority: Medium Hospital Course - Lab Results Lab Results: Most Recent Lab Values WBC 4.6 10^3/ul (4.5-11.0) D 04/02/18 06:00 RBC 3.80 10^6/uL (3.5-6.1) 04/02/18 06:00 Hgb 10.9 g/dL (12.0-16.0) L 04/02/18 06:00 Hct 33.2 % (36.0-48.0) L 04/02/18 06:00 MCV 87.4 fl (80.0-105.0) 04/02/18 06:00 MCH 28.7 pg (25.0-35.0) 04/02/18 06:00 MCHC 32.8 g/dl (31.0-37.0) 04/02/18 06:00 RDW 14.2 % (11.5-14.5) 04/02/18 06:00 Plt Count 256 10^3/uL (120.0-450.0) 04/02/18 06:00 MPV 9.3 fl (7.0-11.0) 04/02/18 06:00 Gran % 39.6 % (50.0-68.0) L 04/02/18 06:00 Lymph % (Auto) 53.2 % (22.0-35.0) H 04/02/18 06:00 [place] % (Auto) 6.1 % (1.0-6.0) H 04/02/18 06:00 Eos % (Auto) 0.9 % (1.5-5.0) L 04/02/18 06:00 Baso % (Auto) 0.2 % (0.0-3.0) 04/02/18 06:00 Gran # 1.81 (1.4-6.5) 04/02/18 06:00 Lymph # (Auto) 2.4 (1.2-3.4) 04/02/18 06:00 [place] # (Auto) 0.3 (0.1-0.6) 04/02/18 06:00 Eos # (Auto) 0.0 (0.0-0.7) 04/02/18 06:00 Baso # (Auto) 0.01 K/mm3 (0.0-2.0) 04/02/18 06:00 D-Dimer, Quantitative < 200 ng/mL (0-243) 04/02/18 14:15 Sodium 142 mmol/L (132-148) 04/02/18 06:00 Potassium 4.1 mmol/L (3.6-5.0) 04/02/18 06:00 Chloride 106 mmol/L (98-107) 04/02/18 06:00 Carbon Dioxide 28 mmol/L (21-33) 04/02/18 06:00 Anion Gap 12 (10-20) 04/02/18 06:00 BUN 10 mg/dL (7-21) 04/02/18 06:00 Creatinine 0.6 mg/dl (0.7-1.2) L 04/02/18 06:00 Est GFR ( Amer) > 60 04/02/18 06:00 Est GFR (Non-Af Amer) > 60 04/02/18 06:00 Random Glucose 98 mg/dL (70-110) 04/02/18 06:00 Hemoglobin A1c 5.8 % (4.2-6.5) 04/02/18 06:00 Calcium 9.3 mg/dL (8.4-10.5) 04/02/18 06:00 Phosphorus 3.9 mg/dL (2.5-4.5) 04/02/18 06:00 Magnesium 2.0 mg/dL (1.7-2.2) 04/02/18 06:00 Total Bilirubin 0.5 mg/dL (0.2-1.3) 04/02/18 06:00 AST 30 U/L (14-36) 04/02/18 06:00 ALT 25 U/L (7-56) 04/02/18 06:00 Alkaline Phosphatase 72 U/L (38-126) 04/02/18 06:00 Lactate Dehydrogenase 423 U/L (333-699) 04/01/18 20:53 Total Creatine Kinase 82 U/L (35-230) 04/01/18 20:53 Troponin I < 0.01 ng/mL 04/02/18 14:15 NT-Pro-B Natriuret Pep 199 pg/mL (0-450) 04/01/18 20:53 Total Protein 7.1 g/dL (5.8-8.3) 04/02/18 06:00 Albumin 3.8 g/dL (3.0-4.8) 04/02/18 06:00 Globulin 3.3 gm/dL 04/02/18 06:00 Albumin/Globulin Ratio 1.1 (1.1-1.8) 04/02/18 06:00 Triglycerides 109 mg/dL (35-160) 04/01/18 20:53 Cholesterol 206 mg/dL (130-200) H 04/01/18 20:53 LDL Cholesterol Direct 101 mg/dL (0-129) 04/01/18 20:53 HDL Cholesterol 59 mg/dL (29-60) 04/01/18 20:53 TSH 3rd Generation 1.34 mIU/mL (0.46-4.68) 04/02/18 06:00 - Hospital Course Hospital Course: Adolfo Browning D.O. PGY1 - Discharge Summary Hospital Course 73-year-old female with a past medical history of hypertension, dementia, and coronary artery disease status post stent placement prior to September 2017, who was brought into the ED by ambulance for left-sided chest pain. Please see chart for full details While in the ED, patient underwent chest x-ray, which was unremarkable. EKG revealed normal sinus rhythm with [id number] voltage criteria for left ventricular hypertrophy. Echocardiogram that was obtained in September of 2017 revealed normal left ventricular size, normal wall thickness, and normal ejection fraction. Patient was subsequently admitted for observation in telemetry for acute coronary syndrome rule-out. Troponins were obtained and were negative x2. Physical exam revealed left lower extremity edema. The patient was suspected to have DVT. D-dimer was obtained and was negative. Lower extremity venous ultrasound was obtained and was negative. Given the patient's risk factors and history of CAD status-post stent in the more distant past, Cardiology was consulted. Per Cardiology recommendation, the patient can be discharged on medical management and is to follow-up in cardiology clinic as an outpatient for a stress test. Of note, the patient's total cholesterol was 206. Lipitor 40mg PO daily and aspirin 81mg daily was started. All home meds were resumed. On day of discharge, patient was feeling well and wanted to go home. Patient denied chest pain, shortness of breath, and/or pain. Patient was hemodynamically stable. Patient was cleared for discharge by all consultants. Patient is follow up with primary doctor within 3 to 5 day. Patient is to follow up with fruit i farmworker within 3 to 5 days. Patient to continue all other medications as prescribed to her. Patient was discharged to home with daughter. Both patient and patient's daughter were given written instructions. All instructions explained to the patient and patient's daughter in detail. Patient both understand and agree to all instructions. Please see full chart for more detail. Discharge Medications Aspirin 81mg PO Daily #30 - Rx Lipitor 40mg Tab PO Daily #30 - Rx Donepezil 10mg PO Daily Zestril 10mg PO Daily Restoril 7.5mg PO HS PRN Patient was seen, plan discussed with, Attending Physician MD Adolfo Burns PGY1 - Date & Time of H&P Date of H&P: 04/01/18 Time of H&P: 23:00 Discharge Exam - Head Exam Head Exam: ATRAUMATIC, NORMAL INSPECTION, NORMOCEPHALIC - Eye Exam Eye Exam: Normal appearance, PERRL. absent: Nystagmus - ENT Exam ENT Exam: Mucous Membranes Moist - Neck Exam Neck exam: Normal Inspection - Respiratory Exam Respiratory Exam: NORMAL BREATHING PATTERN, UNREMARKABLE. absent: Chest Wall Tenderness, Decreased Breath Sounds, Rales, Wheezes - Cardiovascular Exam Cardiovascular Exam: Bradycardia, REGULAR RHYTHM, +S1, +S2. absent: Gallop, Systolic Murmur - GI/Abdominal Exam GI & Abdominal Exam: Normal Bowel Sounds, Soft, Unremarkable. absent: Tenderness - Extremities Exam Extremities exam: pedal edema (+2 non-pitting edema on right lower extremity ) - Back Exam Back exam: FULL ROM, NORMAL INSPECTION. absent: tenderness - Neurological Exam Neurological exam: Alert, Normal Gait - Psychiatric Exam Psychiatric exam: Normal Affect, Normal Mood Discharge Plan - Discharge Medications Prescriptions: Aspirin [Aspirin Chewable] 81 mg PO DAILY #30 chew Atorvastatin [Lipitor] 40 mg PO DAILY #30 tab - Follow Up Plan Condition: STABLE Disposition: HOME/ ROUTINE Patient education suggested?: Yes Instructions: Heart Healthy Diet, Chest Pain (DC), Chest Pain (GEN) Additional Instructions: - Follow up with primary doctor within 3 to 5 days - Follow up with fruit i farmworker within 3 to 5 days - Take medications as prescribed - Resume home medications as prescribed - Proceed to ED if symptoms return Referrals: Waqas Lianres MD [Staff Provider] - <Cele Falcon - Last Filed: 04/03/18 11:01> Provider - Provider Date of Admission: 04/01/18 22:06 Attending physician: Cele Falcon MD Hospital Course - Lab Results Lab Results: Most Recent Lab Values WBC 4.6 10^3/ul (4.5-11.0) D 04/02/18 06:00 RBC 3.80 10^6/uL (3.5-6.1) 04/02/18 06:00 Hgb 10.9 g/dL (12.0-16.0) L 04/02/18 06:00 Hct 33.2 % (36.0-48.0) L 04/02/18 06:00 MCV 87.4 fl (80.0-105.0) 04/02/18 06:00 MCH 28.7 pg (25.0-35.0) 04/02/18 06:00 MCHC 32.8 g/dl (31.0-37.0) 04/02/18 06:00 RDW 14.2 % (11.5-14.5) 04/02/18 06:00 Plt Count 256 10^3/uL (120.0-450.0) 04/02/18 06:00 MPV 9.3 fl (7.0-11.0) 04/02/18 06:00 Gran % 39.6 % (50.0-68.0) L 04/02/18 06:00 Lymph % (Auto) 53.2 % (22.0-35.0) H 04/02/18 06:00 [place] % (Auto) 6.1 % (1.0-6.0) H 04/02/18 06:00 Eos % (Auto) 0.9 % (1.5-5.0) L 04/02/18 06:00 Baso % (Auto) 0.2 % (0.0-3.0) 04/02/18 06:00 Gran # 1.81 (1.4-6.5) 04/02/18 06:00 Lymph # (Auto) 2.4 (1.2-3.4) 04/02/18 06:00 [place] # (Auto) 0.3 (0.1-0.6) 04/02/18 06:00 Eos # (Auto) 0.0 (0.0-0.7) 04/02/18 06:00 Baso # (Auto) 0.01 K/mm3 (0.0-2.0) 04/02/18 06:00 D-Dimer, Quantitative < 200 ng/mL (0-243) 04/02/18 14:15 Sodium 142 mmol/L (132-148) 04/02/18 06:00 Potassium 4.1 mmol/L (3.6-5.0) 04/02/18 06:00 Chloride 106 mmol/L (98-107) 04/02/18 06:00 Carbon Dioxide 28 mmol/L (21-33) 04/02/18 06:00 Anion Gap 12 (10-20) 04/02/18 06:00 BUN 10 mg/dL (7-21) 04/02/18 06:00 Creatinine 0.6 mg/dl (0.7-1.2) L 04/02/18 06:00 Est GFR ( Amer) > 60 04/02/18 06:00 Est GFR (Non-Af Amer) > 60 04/02/18 06:00 Random Glucose 98 mg/dL (70-110) 04/02/18 06:00 Hemoglobin A1c 5.8 % (4.2-6.5) 04/02/18 06:00 Calcium 9.3 mg/dL (8.4-10.5) 04/02/18 06:00 Phosphorus 3.9 mg/dL (2.5-4.5) 04/02/18 06:00 Magnesium 2.0 mg/dL (1.7-2.2) 04/02/18 06:00 Total Bilirubin 0.5 mg/dL (0.2-1.3) 04/02/18 06:00 AST 30 U/L (14-36) 04/02/18 06:00 ALT 25 U/L (7-56) 04/02/18 06:00 Alkaline Phosphatase 72 U/L (38-126) 04/02/18 06:00 Lactate Dehydrogenase 423 U/L (333-699) 04/01/18 20:53 Total Creatine Kinase 82 U/L (35-230) 04/01/18 20:53 Troponin I < 0.01 ng/mL 04/02/18 14:15 NT-Pro-B Natriuret Pep 199 pg/mL (0-450) 04/01/18 20:53 Total Protein 7.1 g/dL (5.8-8.3) 04/02/18 06:00 Albumin 3.8 g/dL (3.0-4.8) 04/02/18 06:00 Globulin 3.3 gm/dL 04/02/18 06:00 Albumin/Globulin Ratio 1.1 (1.1-1.8) 04/02/18 06:00 Triglycerides 109 mg/dL (35-160) 04/01/18 20:53 Cholesterol 206 mg/dL (130-200) H 04/01/18 20:53 LDL Cholesterol Direct 101 mg/dL (0-129) 04/01/18 20:53 HDL Cholesterol 59 mg/dL (29-60) 04/01/18 20:53 TSH 3rd Generation 1.34 mIU/mL (0.46-4.68) 04/02/18 06:00 Attending/Attestation - Attestation I have personally seen and examined this patient.: Yes I have fully participated in the care of the patient.: Yes I have reviewed all pertinent clinical information, including history, physical exam and plan: Yes Notes (Text): 04/03/18 10:54 Attending note; Patient seen and examined with resident. Patient is a 73-year-old female with a past medical history of hypertension, dementia, and coronary artery disease status post stent placement prior to September 2017, who was brought into the ED by ambulance for left-sided chest pain. EKG showed no acute changes. Cardiac enzymes negative. Cardiology evaluation appreciated. Left lower extremity swelling chronic. DVT is negative. D-dimer is normal. Currently patient denies any chest discomfort or shortness of breath. Case discussed with patient's daughter in detail. Patient will be discharged home today. Follow-up with PMD Dr. Irene. Follow-up with fruit i farmworker as per PMD. 04/03/18 11:00
[2018-04-02 15:58] VITALS: PULSE 69
[2018-04-02 15:59] VITALS: O2SAT 97
--- NOTE | 2018-04-02 17:09 | CARD ---
APPROVED REPORT Date of service: 04/02/2018 EXAM: Two-dimensional and M-mode echocardiogram with Doppler and color Doppler. INDICATION Chest Pain 2D DIMENSIONS Left Atrium (2D)4.0 (1.6-4.0cm)IVSd1.0 (0.7-1.1cm) LVDd5.0 (3.9-5.9cm)PWd0.9 (0.7-1.1cm) LVDs3.3 (2.5-4.0cm)FS (%) 34.3 % LVEF (%)63.1 (>50%) M-Mode DIMENSIONS Aortic Root2.20 (2.2-3.7cm)Aortic Cusp Exc.1.50 (1.5-2.0cm) Aortic Valve AoV Peak Odtzkizl290.0cm/Sherri Peak GR.9mmHg Mitral Valve MV E Camhhwwv38.6cm/sMV A Vsrtwund42.2cm/sE/A ratio0.9 TDI E/Lateral E'0.0E/Medial E'0.0 Tricuspid Valve TR Peak [id number]/sRAP [id number] Peak Gr.23mmHg [id number] LEFT VENTRICLE The left ventricle is normal size. There is normal left ventricular wall thickness. The left ventricular function is normal. The left ventricular ejection fraction is within the normal range. There is normal LV segmental wall motion. Transmitral Doppler flow pattern is Grade I-abnormal relaxation pattern. RIGHT VENTRICLE The right ventricle is normal size. There is normal right ventricular wall thickness. The right ventricular systolic function is normal. ATRIA The left atrium is borderline dilated. The right atrium size is normal. AORTIC VALVE The aortic valve is mildly sclerotic. No aortic regurgitation is present. There is no aortic valvular stenosis. MITRAL VALVE The mitral valve is mildly thickened. Mitral regurgitation is trace. There is no mitral valve stenosis. TRICUSPID VALVE The tricuspid valve is normal in structure. There is mild tricuspid regurgitation. PULMONIC VALVE The pulmonary valve is normal in structure. There is no pulmonic valvular regurgitation. GREAT VESSELS The aortic root is normal in size. The IVC is normal in size and collapses >50% with inspiration. PERICARDIAL EFFUSION There is no pericardial effusion. <Conclusion> The left ventricle is normal size. There is normal left ventricular wall thickness. The left ventricular function is normal. The left ventricular ejection fraction is within the normal range. There is normal LV segmental wall motion. Transmitral Doppler flow pattern is Grade I-abnormal relaxation pattern. There is mild tricuspid regurgitation.
--- NOTE | 2018-04-02 17:33 | CARD ---
APPROVED REPORT Date of service: 04/02/2018 EKG Measurement Heart [id number] <Conclusion> Sinus bradycardia Minimal voltage criteria for LVH, may be normal variant Borderline ECG
== END 2018-04-02 16:10 | disposition home or self-care (01) ==
LOC: ED 20:47 → ERH 22:06 → 2RSO 23:32
PROVIDERS: ADMIT Internal Medicine; ATTEND Internal Medicine
DX: R07.9 Chest pain, unspecified (principal); I25.10 Atherosclerotic heart disease of native coronary artery without angina pectoris; I10 Essential (primary) hypertension; F03.90 Unspecified dementia, unspecified severity, without behavioral disturbance, psychotic disturbance, mood disturbance, and anxiety; E03.9 Hypothyroidism, unspecified; M81.0 Age-related osteoporosis without current pathological fracture; Z95.5 Presence of coronary angioplasty implant and graft
CPT/HCPCS: 36415; 71045; 80053; 80061; 82550; 83036; 83615; 83735; 83880; 84100; 84443; 84484; 85025; 85378; 93005; 93306; 93970; 96372; 96374; 99285; C9113; G0378; J1650; J3480